=== PATIENT | male | born 1945 | race Caucasian/White ===

== ENCOUNTER 2016-03-30 07:13 | Emergency (ER) | payer OTHER, MEDICARE ==
[~2016-03-30] VITALS: Ht 167.6 cm; Wt 81.6 kg
[~2016-03-30 07:13] MED LIST: ASPIRIN325 MG PO; ATENOLOL50 MG PO; B-COMPLEX1 CAP PO; CEFTIN500 MG PO; CIPROFLOXACIN500 MG PO; KEFLEX500 MG PO; LUCIDEX100 MG PO; MEDROL DOSEPAK4 MG PO; NAPROSYN500 MG PO; OMEPRAZOLE20 MG PO; PRAZOSIN HCL5 MG PO; ROBAXIN500 MG PO; SERTRALINE25 MG PO; SIMVASTATIN20 MG PO; THERAGRAN1 TAB PO; TRAZODONE100 MG PO; ULTRAM50 MG PO; VENLAFAXINE150 MG PO; VICODIN 5/500 505 MG PO; Vicodin 5/500 505 MG PO; ZITHROMAX500 MG PO; [UNRECOGNIZED DRUG - OTHER] PO; [UNRECOGNIZED DRUG - OTHER] PO
[2016-03-30 07:18] VITALS: BP 132/83
[2016-03-30] MEDS ORDERED: SUBOXONE 2 MG-1 EACH SL (07:19)
[2016-03-30] MEDS ORDERED: ZITHROMAX250 MG PO (08:35)
== END 2016-03-30 08:40 | disposition home or self-care (01) ==
LOC: ED 07:13
DX: J40 Bronchitis, not specified as acute or chronic (principal); Z79.899 Other long term (current) drug therapy

== ENCOUNTER 2016-08-09 15:11 | Emergency (ER) | payer OTHER, MEDICARE ==
[~2016-08-09] VITALS: Wt 74.8 kg
[~2016-08-09 15:11] MED LIST changes: +SUBOXONE 2 MG-1 EACH SL; +ZITHROMAX250 MG PO
[2016-08-09] MEDS ORDERED: ACETAMINOPHEN/B1 TA1 PO (15:22)
[2016-08-09 15:31] LABS: BASO # 0.1 10*3/uL (0.0-0.1); BASO % 0.7 % (0.0-1.0); EOS # 0.3 10*3/uL (0.0-0.4); EOS % 3.7 % (1.0-4.0); HEMOGLOBIN 10.7 g/dl (14.0-18.0); LYMPH # 1.4 10*3/uL (1.3-4.4); LYMPH % 19.1 % (27.0-41.0); MEAN CELL VOLUME 86.3 fl (80.0-94.0); MEAN CORPUSCULAR HGB 28.8 pg (27.0-31.0); MEAN CORPUSCULAR HGB CONC 33.4 g/dl (33.0-37.0); MEAN PLATELET VOLUME 9.1 fl (9.6-12.3); MONO # 0.7 10*3/uL (0.1-1.0); MONO % 9.3 % (3.0-9.0); NEUT # 4.7 10*3/uL (2.3-7.9); NEUT % 67.1 % (47.0-73.0); PLATELET COUNT AUTOMATED 178 10*3/uL (130-400); RED BLOOD COUNT 3.71 10*6/uL (4.50-5.90); RED CELL DISTRI WIDTH 13.6 % (0-14.5); WHITE BLOOD COUNT 7.1 10*3/uL (4.8-10.8)
[2016-08-09 15:46] LABS: ALBUMIN 3.6 gm/dl (3.1-4.5); ALKALINE PHOSPHATASE 87 U/L (45-117); BILIRUBIN, TOTAL 0.2 mg/dl (0.2-1.0); BUN 9 mg/dl (7-24); CARBON DIOXIDE 28 mmol/L (21-32); CHLORIDE 102 mmol/L (98-107); EST GLOM FILT AFRICAN AMERICAN > 60 ml/min; GLUCOSE 105 mg/dL (65-99); MAGNESIUM 2.1 mg/dL (1.5-2.1); POTASSIUM 3.7 mmol/L (3.5-5.1); SGOT/AST 16 IU/L (3-35); SGPT/ALT 17 U/L (12-78); SODIUM 139 mmol/L (136-145); TOTAL PROTEIN 6.6 gm/dL (6.4-8.2)
[2016-08-09 15:50] LABS: PROTHROMBIN TIME 10.4 SECONDS (9.0-12.4)
[2016-08-09 16:18] VITALS: BP 147/93
== END 2016-08-09 16:42 | disposition home or self-care (01) ==
LOC: ED 15:11
PROVIDERS: Emergency Medicine
DX: R07.9 Chest pain, unspecified (principal); Z90.49 Acquired absence of other specified parts of digestive tract; I25.2 Old myocardial infarction; Z95.1 Presence of aortocoronary bypass graft

== ENCOUNTER 2016-08-30 19:48 | Inpatient (IN) | payer OTHER ==
[~2016-08-30] VITALS: Ht 167.6 cm; Wt 74.0 kg
--- NOTE | ~2016-08-30 | ST ---
[place], [place] EXERCISE STRESS TEST REPORT NAME: ARMANDO IZAGUIRRE [facility] #: [id number] UNIT #: [id number] ROOM: 506 DOCTOR: KYLE LAL MD BIRTHDATE: [birth year] DOS: 08/31/2016 INDICATIONS: Precordial chest pain. PROCEDURE: The patient was given a rapid infusion of regadenoson 0.4 mg intravenously followed by a saline flush. He did note shortness of breath, but denied any chest pain. The resting heart rate of 48 belén to 78. The resting blood pressure of 162/78 fell to 148/80 after the infusion, he was given radionuclide intravenously. He had no diagnostic electrocardiographic changes. He did have frequent premature ventricular contractions before, during and after the infusion. All symptoms resolved spontaneously. IMPRESSION: 1. Well tolerated infusion of regadenoson. 2. Radionuclide administered. Please see the separate imaging report for further details of the patient's stress test results. KYLE LAL MD CM:STRESS:EXERCISE STRESS TEST REPORT [id number] KYLE LAL MD
--- NOTE | ~2016-08-30 | PR ---
[place], [place] PROGRESS NOTE NAME: ARMANDO IZAGUIRRE UNIT #: [id number] ROOM: 506 DOCTOR: KYLE LAL MD BIRTHDATE: [birth year] DOS: SUBJECTIVE: The patient was seen at his bedside today 09/01/2016 for followup of his atherosclerotic heart disease and chest pain. I reviewed the stress test which was done yesterday. The study does show an inferior wall myocardial infarction with rhoda-infarction ischemia. In addition, he does have anterior and lateral ischemia. The study is compatible with multivessel coronary artery disease. His ejection fraction is preserved. The patient does have a high risk for future cardiac events and I think that he should undergo catheterization and potential revascularization. I have discussed these issues with him. He would prefer to have any further invasive work done through the [facility] and I will defer to his wishes. manager creative services have been requested to arrange for transfer. I have also discussed this with the house staff. OBJECTIVE: VITAL SIGNS: On exam today, his pulse is 50 and regular, blood pressure is 126/58. He is afebrile. NECK: Supple. He has no jugular distention. CHEST: Clear. HEART: Has regular rhythm and an S4 gallop. ABDOMEN: Benign. EXTREMITIES: Showed no edema. IMPRESSION: 1. Atypical precordial chest pain, acute myocardial infarction ruled out. 2. History of coronary artery disease and previous myocardial infarction, status post bypass surgery in 1995 at the [facility] in [place]. A 3-vessel procedure was done. Records are not currently available. 3. Abnormal stress test demonstrating an old inferior wall myocardial infarction with rhoda-infarction ischemia along with considerable anterolateral ischemia. This study is compatible with multivessel coronary artery disease and a high risk for future cardiac events. PLAN: As noted, the patient is being treated medically for now, but should be transferred to a tertiary care center for catheterization and probable revascularization. This is being arranged. We thank the hospitalist group for asking our advice regarding his care. [place], [place] PROGRESS NOTE NAME: ARMANDO IZAGUIRRE UNIT #: [id number] ROOM: 506 DOCTOR: KYLE LAL MD BIRTHDATE: [birth year] KYLE LAL MD CM:PNTRANS [id number] KYLE LAL MD 09/01/16 2235 interface
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
[~2016-08-30 19:48] MED LIST changes: +ACETAMINOPHEN/B1 TA1 PO
[2016-08-30 19:52] VITALS: BP 122/105
[2016-08-30 20:25] VITALS: BP 139/57
[2016-08-30 20:29] LABS: BASO # 0.1 10*3/uL (0.0-0.1); BASO % 0.7 % (0.0-1.0); EOS # 0.2 10*3/uL (0.0-0.4); EOS % 3.5 % (1.0-4.0); HEMATOCRIT 33.3 % (42.0-52.0); HEMOGLOBIN 11.2 g/dl (14.0-18.0); LYMPH # 1.9 10*3/uL (1.3-4.4); LYMPH % 26.7 % (27.0-41.0); MEAN CORPUSCULAR HGB 28.9 pg (27.0-31.0); MEAN CORPUSCULAR HGB CONC 33.6 g/dl (33.0-37.0); MEAN PLATELET VOLUME 11.1 fl (9.6-12.3); MONO # 0.5 10*3/uL (0.1-1.0); MONO % 7.6 % (3.0-9.0); NEUT # 4.3 10*3/uL (2.3-7.9); NEUT % 61.4 % (47.0-73.0); PLATELET COUNT AUTOMATED 175 10*3/uL (130-400); RED BLOOD COUNT 3.87 10*6/uL (4.50-5.90); RED CELL DISTRI WIDTH 13.9 % (0-14.5); WHITE BLOOD COUNT 6.9 10*3/uL (4.8-10.8)
[2016-08-30 20:37] LABS: PROTHROMBIN TIME 10.7 SECONDS (9.0-12.4)
[2016-08-30 21:09] VITALS: BP 113/54
[2016-08-30 21:13] LABS: ALBUMIN 3.5 gm/dl (3.1-4.5); ALKALINE PHOSPHATASE 102 U/L (45-117); BILIRUBIN, TOTAL 0.2 mg/dl (0.2-1.0); BUN 17 mg/dl (7-24); CARBON DIOXIDE 31 mmol/L (21-32); CHLORIDE 101 mmol/L (98-107); EST GLOM FILT AFRICAN AMERICAN > 60 ml/min; GLUCOSE 109 mg/dL (65-99); POTASSIUM 3.1 mmol/L (3.5-5.1); SGOT/AST 18 IU/L (3-35); SGPT/ALT 22 U/L (12-78); SODIUM 139 mmol/L (136-145); TOTAL PROTEIN 6.7 gm/dL (6.4-8.2); TROPONIN I 0.038 ng/ml (<0.045)
[2016-08-30 21:30] VITALS: BP 119/56
[2016-08-30 22:05] VITALS: BP 133/23; BP 133/63
[2016-08-30] MEDS ORDERED: ATORVASTATIN CA40 M1 PO (22:19)
[2016-08-31] VITALS: BP 129/63
[2016-08-31 01:07] LABS: CKMB 1.2 ng/ml (0.5-3.6); TROPONIN I 0.037 ng/ml (<0.045)
[2016-08-31 06:26] LABS: BASO % 0.8 % (0.0-1.0); EOS # 0.2 10*3/uL (0.0-0.4); EOS % 4.5 % (1.0-4.0); HEMATOCRIT 35.2 % (42.0-52.0); HEMOGLOBIN 11.6 g/dl (14.0-18.0); LYMPH # 1.6 10*3/uL (1.3-4.4); LYMPH % 32.9 % (27.0-41.0); MEAN CELL VOLUME 87.1 fl (80.0-94.0); MEAN CORPUSCULAR HGB 28.7 pg (27.0-31.0); MONO # 0.6 10*3/uL (0.1-1.0); MONO % 11.4 % (3.0-9.0); NEUT # 2.5 10*3/uL (2.3-7.9); NEUT % 50.2 % (47.0-73.0); PLATELET COUNT AUTOMATED 193 10*3/uL (130-400); RED BLOOD COUNT 4.04 10*6/uL (4.50-5.90); RED CELL DISTRI WIDTH 13.5 % (0-14.5); WHITE BLOOD COUNT 4.9 10*3/uL (4.8-10.8)
[2016-08-31 06:34] LABS: TROPONIN I 0.04 ng/ml (<0.045)
[2016-08-31 06:42] LABS: PROTHROMBIN TIME 10.4 SECONDS (9.0-12.4)
[2016-08-31 06:43] LABS: BUN 15 mg/dl (7-24); CARBON DIOXIDE 32 mmol/L (21-32); CHLORIDE 102 mmol/L (98-107); GLUCOSE 101 mg/dL (65-99); HDL CHOLESTEROL 55 mg/dl (40-60); POTASSIUM 3.8 mmol/L (3.5-5.1); SODIUM 139 mmol/L (136-145)
[2016-08-31 06:56] LABS: CHOLESTEROL 117 mg/dL (<200); EST GLOM FILT AFRICAN AMERICAN > 60 ml/min; FREE T4 0.87 ng/dl (0.76-1.46); LDL CHOLESTEROL 45 mg/dL (9-159); TRIGLYCERIDES 87 mg/dl (<150); VLDL CHOLESTEROL 17 mg/dL (6-40)
[2016-08-31 08:00] VITALS: BP 151/68
[2016-08-31 08:48] LABS: FOLIC ACID 22.51 ng/mL (>5.38)
[2016-08-31 14:47] LABS: CKMB 1.1 ng/ml (0.5-3.6); TROPONIN I 0.027 ng/ml (<0.045)
[2016-08-31 16:00] VITALS: BP 155/71
[2016-08-31 20:00] VITALS: BP 149/55
[2016-09-01] VITALS: BP 124/75
[2016-09-01 07:49] LABS: BUN 9 mg/dl (7-24); CARBON DIOXIDE 30 mmol/L (21-32); CHLORIDE 102 mmol/L (98-107); EST GLOM FILT AFRICAN AMERICAN > 60 ml/min; GLUCOSE 108 mg/dL (65-99); POTASSIUM 3.6 mmol/L (3.5-5.1); SODIUM 138 mmol/L (136-145)
[2016-09-01 08:00] VITALS: BP 126/58
[2016-09-01 08:08] LABS: BASO # 0.1 10*3/uL (0.0-0.1); EOS # 0.2 10*3/uL (0.0-0.4); EOS % 4.2 % (1.0-4.0); HEMATOCRIT 36.9 % (42.0-52.0); HEMOGLOBIN 12.2 g/dl (14.0-18.0); LYMPH # 1.5 10*3/uL (1.3-4.4); LYMPH % 29.3 % (27.0-41.0); MEAN CORPUSCULAR HGB 28.1 pg (27.0-31.0); MEAN CORPUSCULAR HGB CONC 33.1 g/dl (33.0-37.0); MEAN PLATELET VOLUME 9.8 fl (9.6-12.3); MONO # 0.5 10*3/uL (0.1-1.0); MONO % 9.5 % (3.0-9.0); NEUT # 2.8 10*3/uL (2.3-7.9); NEUT % 55.8 % (47.0-73.0); PLATELET COUNT AUTOMATED 201 10*3/uL (130-400); RED BLOOD COUNT 4.34 10*6/uL (4.50-5.90); RED CELL DISTRI WIDTH 13.3 % (0-14.5); WHITE BLOOD COUNT 5.1 10*3/uL (4.8-10.8)
[2016-09-01 12:00] VITALS: BP 160/46; BP 160/66
[2016-09-01 16:00] VITALS: BP 145/61
[2016-09-01 20:00] VITALS: BP 161/71
[2016-09-01 21:15] VITALS: BP 161/71
[2016-09-02] VITALS: BP 113/61
[2016-09-02 08:00] VITALS: BP 139/78
[2016-09-02 12:00] VITALS: BP 136/76
[2016-09-02 16:00] VITALS: BP 106/44
[2016-09-02 20:00] VITALS: BP 139/72
[2016-09-03] VITALS: BP 120/55
[2016-09-03 06:13] LABS: BASO % 0.4 % (0.0-1.0); EOS # 0.1 10*3/uL (0.0-0.4); EOS % 1.2 % (1.0-4.0); HEMATOCRIT 33.3 % (42.0-52.0); HEMOGLOBIN 11.2 g/dl (14.0-18.0); LYMPH # 0.9 10*3/uL (1.3-4.4); LYMPH % 12.9 % (27.0-41.0); MEAN CELL VOLUME 85.6 fl (80.0-94.0); MEAN CORPUSCULAR HGB 28.8 pg (27.0-31.0); MEAN CORPUSCULAR HGB CONC 33.6 g/dl (33.0-37.0); MEAN PLATELET VOLUME 10.3 fl (9.6-12.3); MONO # 0.6 10*3/uL (0.1-1.0); MONO % 8.7 % (3.0-9.0); NEUT # 5.3 10*3/uL (2.3-7.9); NEUT % 76.5 % (47.0-73.0); PLATELET COUNT AUTOMATED 146 10*3/uL (130-400); RED BLOOD COUNT 3.89 10*6/uL (4.50-5.90); RED CELL DISTRI WIDTH 13.4 % (0-14.5); WHITE BLOOD COUNT 6.9 10*3/uL (4.8-10.8)
[2016-09-03 06:49] LABS: EST GLOM FILT AFRICAN AMERICAN > 60 ml/min
[2016-09-03 08:00] VITALS: BP 128/43
[2016-09-03] MEDS ORDERED: CLOPIDOGREL75 MG PO (11:37)
[2016-09-03] MEDS ORDERED: ASPIRIN ADULT L81 M2 PO (11:37)
[2016-09-03] MEDS ORDERED: METOPROLOL SUCC25 M2 PO (11:37)
[2016-09-03 12:00] VITALS: BP 132/52
[2016-09-03 16:00] VITALS: BP 143/74
[2016-09-03 20:00] VITALS: BP 144/70
[2016-09-04] VITALS: BP 112/48
== END 2016-09-04 07:45 | disposition short-term general hospital (02) | DRG 303 ==
LOC: ED 19:48 → EDHOLD 21:24 → 5E 21:24
PROVIDERS: Emergency Medicine; Internal Medicine; Student in an Organized Health Care Education/Training Program
PROC: 4A02XM4 Measurement of Cardiac Total Activity, External Approach (ICD-10-PCS; principal; 2016-08-31)
PROC: 3E033HZ Introduction of Radioactive Substance into Peripheral Vein, Percutaneous Approach (ICD-10-PCS; principal; 2016-08-31)
DX: I25.110 Atherosclerotic heart disease of native coronary artery with unstable angina pectoris (principal); E78.5 Hyperlipidemia, unspecified; E87.6 Hypokalemia; K21.9 Gastro-esophageal reflux disease without esophagitis; D64.9 Anemia, unspecified; G43.909 Migraine, unspecified, not intractable, without status migrainosus; G89.4 Chronic pain syndrome; Z90.49 Acquired absence of other specified parts of digestive tract; I25.2 Old myocardial infarction; Z95.1 Presence of aortocoronary bypass graft; Z87.891 Personal history of nicotine dependence; Z82.49 Family history of ischemic heart disease and other diseases of the circulatory system; Z80.9 Family history of malignant neoplasm, unspecified; Z79.1 Long term (current) use of non-steroidal anti-inflammatories (NSAID); Z79.899 Other long term (current) drug therapy

== ENCOUNTER 2019-05-09 14:23 | Inpatient (IN) | payer OTHER ==
[~2019-05-09] VITALS: Ht 167.6 cm; Wt 73.1 kg
[~2019-05-09 14:23] MED LIST changes: +ASPIRIN ADULT L81 M2 PO; +ATORVASTATIN CA40 M1 PO; +CLOPIDOGREL75 MG PO; +FUROSEMIDE20 M1 PO; +METOPROLOL SUCC25 M2 PO; +MINIPRESS1 M1 PO; +ZESTRIL10 MG PO
[2019-05-09 14:32] VITALS: BP 169/66
[2019-05-09 15:05] LABS: BASO % 0.4 % (0.0-1.0); EOS # 0.1 10*3/uL (0.0-0.4); EOS % 1.2 % (1.0-4.0); HEMATOCRIT 36.8 % (42.0-52.0); HEMOGLOBIN 11.8 g/dl (14.0-18.0); LYMPH # 0.9 10*3/uL (1.3-4.4); LYMPH % 17.4 % (27.0-41.0); MEAN CELL VOLUME 92.2 fl (80.0-94.0); MEAN CORPUSCULAR HGB 29.6 pg (27.0-31.0); MEAN CORPUSCULAR HGB CONC 32.1 g/dl (33.0-37.0); MONO # 0.6 10*3/uL (0.1-1.0); MONO % 12.3 % (3.0-9.0); NEUT # 3.5 10*3/uL (2.3-7.9); NEUT % 68.5 % (47.0-73.0); PLATELET COUNT AUTOMATED 150 10*3/uL (130-400); RED BLOOD COUNT 3.99 10*6/uL (4.50-5.90); WHITE BLOOD COUNT 5.1 10*3/uL (4.8-10.8)
[2019-05-09 15:26] LABS: ALBUMIN 3.7 gm/dl (3.1-4.5); ALKALINE PHOSPHATASE 103 U/L (45-117); BUN 23 mg/dl (7-24); CHLORIDE 100 mmol/L (98-107); CREATININE 0.85 mg/dL (0.70-1.30); POTASSIUM 3.4 mmol/L (3.5-5.1); SGOT/AST 33 IU/L (3-35); SGPT/ALT 28 U/L (12-78); SODIUM 135 mmol/L (136-145)
[2019-05-09 15:30] LABS: ETHYL ALCOHOL < 3.0 mg/dl (<3)
[2019-05-09 17:55] VITALS: BP 160/92; BP 161/95
[2019-05-09] MEDS ORDERED: ZOLOFT100 MG PO (19:24)
[2019-05-09 20:00] VITALS: BP 157/83
[2019-05-10] VITALS: BP 153/76
[2019-05-10 06:21] LABS: BASO % 0.7 % (0.0-1.0); EOS # 0.1 10*3/uL (0.0-0.4); EOS % 1.9 % (1.0-4.0); HEMATOCRIT 38.3 % (42.0-52.0); HEMOGLOBIN 12.3 g/dl (14.0-18.0); LYMPH # 1.1 10*3/uL (1.3-4.4); LYMPH % 25.9 % (27.0-41.0); MEAN CELL VOLUME 91.4 fl (80.0-94.0); MEAN CORPUSCULAR HGB 29.4 pg (27.0-31.0); MEAN CORPUSCULAR HGB CONC 32.1 g/dl (33.0-37.0); MEAN PLATELET VOLUME 9.3 fl (9.6-12.3); MONO # 0.6 10*3/uL (0.1-1.0); MONO % 13.3 % (3.0-9.0); NEUT # 2.4 10*3/uL (2.3-7.9); PLATELET COUNT AUTOMATED 144 10*3/uL (130-400); RED BLOOD COUNT 4.19 10*6/uL (4.50-5.90); RED CELL DISTRI WIDTH 14.2 % (0-14.5); WHITE BLOOD COUNT 4.1 10*3/uL (4.8-10.8)
[2019-05-10 06:43] LABS: ALBUMIN 3.6 gm/dl (3.1-4.5); ALKALINE PHOSPHATASE 90 U/L (45-117); BUN 14 mg/dl (7-24); CHLORIDE 102 mmol/L (98-107); CHOLESTEROL 182 mg/dL (<200); FREE T4 0.93 ng/dl (0.76-1.46); HDL CHOLESTEROL 93 mg/dl (40-60); LDL CHOLESTEROL 74 mg/dL (9-159); PHOSPHOROUS 3.3 mg/dL (2.5-4.9); POTASSIUM 3.1 mmol/L (3.5-5.1); SGOT/AST 24 IU/L (3-35); SGPT/ALT 25 U/L (12-78); SODIUM 139 mmol/L (136-145); TOTAL PROTEIN 6.9 gm/dL (6.4-8.2); TRIGLYCERIDES 76 mg/dl (<150); VLDL CHOLESTEROL 15 mg/dL (6-40)
[2019-05-10 06:44] LABS: ACT PARTIAL THROMBO TIME 26.1 SECONDS (20.0-32.1); INTERNATIONAL NORM RATIO 0.9 (2.0-3.5)
[2019-05-10 07:04] LABS: VITAMIN D, 25-HYDROXY 44.5 ng/mL (30-100)
[2019-05-10 08:00] VITALS: BP 167/87
[2019-05-10 08:30] VITALS: BP 132/78
== END 2019-05-10 11:47 | disposition home or self-care (01) | DRG 897 ==
LOC: ED 14:23 → EDHOLD 16:06 → 5E 16:51
PROVIDERS: Emergency Medicine; Internal Medicine; ADMIT Family Medicine
DX: F10.239 Alcohol dependence with withdrawal, unspecified (principal); E87.1 Hypo-osmolality and hyponatremia; E87.6 Hypokalemia; D64.9 Anemia, unspecified; F32.9 Major depressive disorder, single episode, unspecified; R73.9 Hyperglycemia, unspecified; I25.10 Atherosclerotic heart disease of native coronary artery without angina pectoris; E78.5 Hyperlipidemia, unspecified; K21.9 Gastro-esophageal reflux disease without esophagitis; G43.909 Migraine, unspecified, not intractable, without status migrainosus; Y90.9 Presence of alcohol in blood, level not specified; Z79.899 Other long term (current) drug therapy; I25.2 Old myocardial infarction; Z95.1 Presence of aortocoronary bypass graft; Z82.49 Family history of ischemic heart disease and other diseases of the circulatory system; Z87.891 Personal history of nicotine dependence; Z80.0 Family history of malignant neoplasm of digestive organs; Z68.25 Body mass index [BMI] 25.0-25.9, adult

== ENCOUNTER → 2019-08-07 | Outpatient (CLI) | payer OTHER ==
[~2019-08-07] MED LIST changes: +ZOLOFT100 MG PO
== END | disposition home or self-care (01) ==
LOC: CARD 09:58
DX: I08.8 Other rheumatic multiple valve diseases (principal); I27.20 Pulmonary hypertension, unspecified

== ENCOUNTER 2019-09-29 13:45 | Inpatient (IN) | payer OTHER ==
[~2019-09-29] VITALS: Ht 167.6 cm; Wt 68.2 kg
[2019-09-29 13:51] VITALS: BP 154/101
[2019-09-29 14:18] LABS: BASO # 0.1 10*3/uL (0.0-0.1); BASO % 0.8 % (0.0-1.0); EOS # 0.1 10*3/uL (0.0-0.4); EOS % 1.3 % (1.0-4.0); HEMATOCRIT 38.5 % (42.0-52.0); LYMPH # 1.1 10*3/uL (1.3-4.4); LYMPH % 18.6 % (27.0-41.0); MEAN CELL VOLUME 86.9 fl (80.0-94.0); MEAN CORPUSCULAR HGB 28.9 pg (27.0-31.0); MEAN CORPUSCULAR HGB CONC 33.2 g/dl (33.0-37.0); MEAN PLATELET VOLUME 8.5 fl (9.6-12.3); MONO # 0.5 10*3/uL (0.1-1.0); MONO % 7.7 % (3.0-9.0); NEUT # 4.3 10*3/uL (2.3-7.9); NEUT % 71.4 % (47.0-73.0); PLATELET COUNT AUTOMATED 235 10*3/uL (130-400); RED BLOOD COUNT 4.43 10*6/uL (4.50-5.90); RED CELL DISTRI WIDTH 14.1 % (0-14.5)
[2019-09-29 14:32] LABS: ALBUMIN 3.9 gm/dl (3.1-4.5); ALKALINE PHOSPHATASE 109 U/L (45-117); BUN 19 mg/dl (7-24); CHLORIDE 107 mmol/L (98-107); CREATININE 0.88 mg/dL (0.70-1.30); LIPASE 102 U/L (73-393); POTASSIUM 3.6 mmol/L (3.5-5.1); SGOT/AST 19 IU/L (3-35); SGPT/ALT 22 U/L (12-78); SODIUM 141 mmol/L (136-145); TOTAL PROTEIN 7.6 gm/dL (6.4-8.2)
[2019-09-29 14:33] LABS: ACETAMINOPHEN (TYLENOL) < 5.0 ug/ml (10-30)
[2019-09-29 14:53] LABS: URINE AMPHETAMINES < 1000 (1000ng/ml); URINE BARBITURATES < 200 (200ng/ml); URINE BENZODIAZEPINES < 200 (200ng/ml); URINE CANNABINOIDS (THC) < 50 (50ng/ml); URINE COCAINE < 300 (300ng/ml); URINE METHADONE < 300 (300ng/ml); URINE OPIATES < 300 (300ng/ml)
[2019-09-29 14:55] LABS: BILIRUBIN NEGATIVE (NEGATIVE); BLOOD TRACE-INTACT (NEGATIVE); CLARITY CLEAR (CLEAR); COLOR YELLOW (YELLOW); GLUCOSE NEGATIVE (NEGATIVE); KETONE NEGATIVE (NEGATIVE); LEUKO ESTERASE NEGATIVE (NEGATIVE); NITRITE NEGATIVE (NEGATIVE); SPECIFIC GRAVITY 1.025 (1.005-1.030); UROBILINOGEN < 0.2 E.U./dl (0.2-1.0)
[2019-09-29 14:57] LABS: URINE PHENCYCLIDINE < 25 (25ng/ml)
--- NOTE | 2019-09-29 14:59 | NUR ---
PROVIDED CRACKERS AND GINGERALE PER HIS REQUEST.
[2019-09-29 15:30] VITALS: BP 130/80
--- NOTE | 2019-09-29 15:31 | NUR ---
[place] STAFF IN TO SEE PATIENT. PATIENT MEETS [facility]. [facility] STAFF WILL ALSO PROVIDE PATIENT WITH AA/NA MEETINGS IN HIS LOCAL AREA. ZACH WEBB B.A. CHEFS
--- NOTE | 2019-09-29 15:48 | NUR ---
PROVIDED MEAL TRAY AT THIS TIME.
[2019-09-29 16:45] VITALS: BP 136/89
--- NOTE | 2019-09-29 16:45 | NUR ---
A 73, admitted to , under the services of SCOTT Murphy DO with a diagnosis of OPIATE WITHDRAWAL, ALCOHOL ABUSE. Chief complaint is SUICIDAL IDEATION. Patient arrived via bed from ER. Monitor applied. Initial assessment completed. Vital signs taken and recorded. SCOTT MURPHY DO notified of admission to the unit. Orders received. See assessment for past medical history, medications and allergies. Patient and/or family oriented to unit. [facility] visitation policy reviewed. Clothing/patient valuable form completed. BUD BALDWIN
[2019-09-29 17:00] VITALS: BP 136/89
--- NOTE | 2019-09-29 19:04 | NUR ---
UNABLE TO UPDATE HOME MEDICATIONS. PT CANNOT VERIFY AND [facility] CLOSE AT 4PM. WILL VERIFY TOMORROW
--- NOTE | 2019-09-29 19:06 | NUR ---
NOTIFIED PERSONNEL RECORDS CLERK OF SUICIDAL IDEATION IN ER. PT IS TO STAY ON FLOOR, NO 1:1 NEEDED. NOT SUICIDAL IDEATIONS AT THIS TIME.
--- NOTE | 2019-09-29 19:21 | NUR ---
24 HR chart check completed.
--- NOTE | 2019-09-29 19:43 | NUR ---
ALISON HOWARD NOTIFIED OF CONSULT, WILL BE IN TO SEE PATIENT IN THE MORNING.
[2019-09-29 20:00] VITALS: BP 155/67
--- NOTE | 2019-09-29 21:21 | NUR ---
Patient displaying withdrawal symptoms, including: irritability, anxiousness, restlessness and agitation. Scheduled/PRN medications provided, SEE EMAR. Will continue to monitor medication effectiveness.
--- NOTE | 2019-09-29 22:00 | NUR ---
Patient resting. Responding to scheduled medications with fewer complaints of pain and anxiety.
[2019-09-30] VITALS: BP 158/81
--- NOTE | 2019-09-30 | NUR ---
SLEEPING. NO ACUTE DISTRESS NOTED. RESPIRATIONS EASY. VSS. CALL LIGHT WITHIN REACH
--- NOTE | 2019-09-30 01:23 | NUR ---
HR ELEVATED 120-140'S. PATIENT DIAPHORETIC WITH TREMORS. IV ATIVAN PROVIDED PER PRN ORDER. WILL MONITOR
--- NOTE | 2019-09-30 01:58 | NUR ---
Patient SLEEPING. Responding to scheduled medications with fewer complaints of pain and anxiety. HR 80-90'S. CALL LIGHT WITHIN REACH
--- NOTE | 2019-09-30 04:00 | NUR ---
Patient resting. Responding to scheduled medications with fewer complaints of pain and anxiety.
--- NOTE | 2019-09-30 05:32 | NUR ---
SLEEPING. MEDICATED WITH ROUTINE LIBRIUM TO ASSIST WITH WITHDRAWALS. WILL MONITOR
--- NOTE | 2019-09-30 06:30 | NUR ---
Patient resting. Responding to scheduled medications with fewer complaints of pain and anxiety.
[2019-09-30 08:00] VITALS: BP 133/71
--- NOTE | 2019-09-30 08:00 | NUR ---
PATIENT AWAKE, ALERT AND ORIENTED SITTING UP IN BED. NO STATED COMPLAINTS AT THIS TIME. DENIES ANY PAIN. RESPIRATIONS ARE EASY AND REGULAR. NO SOB NOTED ON ROOM AIR. BED IN LOWEST LOCKED POSITION AND CALL LIGHT WITHIN REACH. WILL CONTINUE TO MONITOR.
--- NOTE | 2019-09-30 10:16 | NUR ---
met with client to assess for suicide risk and ideation. client was in the er yesterday but i could not assess him as he was intoxicated. client is now sober he reports that he felt suicidal yesterday because he said that he knew that if he didnt get help he would do something, he was admitted to [facility] to detox, he said that he feels better today and he denies having any suicidal thoughts presently. he reports that he feels safe and he does not want to harm himself. this client is not a present risk for self harm, he is not suicidal.
--- NOTE | 2019-09-30 11:13 | NUR ---
PRN ROBAXIN ADMINISTERED AT THIS TIME. WILL MONITOR FOR EFFECTIVE.
--- NOTE | 2019-09-30 11:14 | NUR ---
PRN VISTARIL ADMINISTERED AT THIS TIME. WILL MONITOR FOR EFFECTIVENESS.
--- NOTE | 2019-09-30 11:23 | NUR ---
case management contacted transfer center at [facility] [place] regarding patient's admission to this facility. patient's information given and will be forwarded to a outpatient case manager at [facility], case management will follow
--- NOTE | 2019-09-30 11:52 | NUR ---
PT C/O OF DIARRHEA. PRN IMODIUM ADMINISTERED AT THIS TIME.
[2019-09-30 12:00] VITALS: BP 129/77
--- NOTE | 2019-09-30 12:13 | NUR ---
PT ASLEEP PRN ROBAXIN CONSIDERED EFFECTIVE.
--- NOTE | 2019-09-30 12:14 | NUR ---
PT ASLEEP. PRN VISTARIL CONSIDERED EFFECTIVE,
--- NOTE | 2019-09-30 12:39 | NUR ---
SECURITY CALLED REGARDING PT'S DIET COKES THAT WERE TAKEN.
--- NOTE | 2019-09-30 12:45 | NUR ---
case managment received a call from Souleymane, disease case manager at [facility], Souleymane requested patient's clinicals be faxed, clinials faxed per Zeus request, Souleymane also stated patient has medicare part A as an insurance also, he also [facility] able [facility] with [facility] upon discharge
--- NOTE | 2019-09-30 12:52 | NUR ---
PT STATES RELIEF FROM IMODIUM.
--- NOTE | 2019-09-30 13:06 | NUR ---
[facility] STAFF IN TO SEE PATIENT. PATIENT IS WANTING TO FOLLOW UP WITH AA/NA MEETINGS FOR HIS AFTERCARE PLAN. [place] STAFF WILL PROVIDE PATIENT WITH A LIST IN HIS AREA. ZACH WEBB B.A. CITY ENGINEER
--- NOTE | 2019-09-30 13:06 | NUR ---
PRN TYLENOL ADMINISTERED FOR C/O A HEADACHE. WILL MONITOR FOR EFFECTIVENESS.
--- NOTE | 2019-09-30 14:06 | NUR ---
PT STATES SOME RELIEF FROM PRN TYLENOL. NO OTHER STATED COMPLAINTS. RESPIRATIONS ARE EASY AND REGULAR. ROOM AIR. PT REPOSITIONS SELF AND IS ENCOURAGED TO DO SO. BED IN LOWEST LOCKED POSITION AND CALL LIGHT WITHIN REACH.
[2019-09-30 20:00] VITALS: BP 150/80
--- NOTE | 2019-09-30 20:30 | NUR ---
ASSUMED CARE OF PATIENT. PATIENT IS RESTING IN BED WITH EASY AND REGULAR RESPERS ON ROOM AIR. ASSESSMENT IS COMPLETE WITH NO C/O OR S/S OF DISTRESS NOTED AT THIS TIME. BED IS LOW, LOCKED, AND CALL LIGHT IS WITHIN REACH. WILL CONTINUE TO MONITOR, SEE INTERVENTIONS.
--- NOTE | 2019-09-30 21:46 | NUR ---
PRN TYLENOL AND VISTARIL GIVEN AT THIS TIME FOR C/O ACHES AND INSOMNIA. CALL LIGHT IS WITHIN REACH, WILL MONITOR EFFECT.
--- NOTE | 2019-09-30 22:46 | NUR ---
PRN TYLENOL AND VISTARIL APPEAR EFFECTIVE. PATIENT IS SLEEPING WITH EASY AND REGULAR RESPERS ON ROOM AIR. CALL LIGHT IS WITHIN REACH, WILL CONTINUE TO MONITOR.
[2019-10-01] VITALS: BP 157/79
--- NOTE | 2019-10-01 04:00 | NUR ---
PATIENT SLEEPING WITH EASY AND REGULAR RESPERS ON ROOM AIR. CALL LIGHT IS WITHIN REACH, WILL CONTINUE TO MONITOR.
--- NOTE | 2019-10-01 06:32 | NUR ---
PRN ROBAXIN GIVEN FOR C/O BADY ACHES. CALL LIGHT IS WITHIN REACH, WILL CONTINUE TO MONITOR.
--- NOTE | 2019-10-01 12:05 | NUR ---
[place] STAFF IN TO SEE PATIENT. [place] STAFF PROVIDED PATIENT WITH REFERRAL OPTIONS AND A LIST AA/NA MEETINGS IN HIS LOCAL AREA. ZACH WEBB B.A. COMMERCIAL TITLE EXAMINER
--- NOTE | 2019-10-01 13:16 | NUR ---
ATIVAN 1 MG GIVEN FOR INCREASED ANXIETY.
[2019-10-01 20:00] VITALS: BP 151/71
--- NOTE | 2019-10-01 21:30 | NUR ---
PATIENT CALLED IN STATING PATIENT IS REQUESTING SLEEPING MEDICATION, SOMETHING FOR A HEADACHE, AND LEGS ACHING.
--- NOTE | 2019-10-01 21:47 | NUR ---
PRN MOTRIN, TYLENOL, AND ATIVAN GIVEN AT THIS TIME FOR C/O HEADACHES/LEG ACHES AND ANXIETY. PATIENT ALSO C/O GI UPSET. CALL LIGHT IS WITHIN REACH. WILL MONITOR EFFECT.
--- NOTE | 2019-10-01 21:54 | NUR ---
PRN ZOFRAN GIVEN FOR C/O GI UPSET/NAUSEA. CALL LIGHT IS WITHIN REACH, WILL MONITOR EFFECT.
--- NOTE | 2019-10-01 22:47 | NUR ---
PRN MOTRIN, TYLENOL, AND ATIVAN EFFECTIVE, PATIENT SLEEPING. CALL LIGHT IS WITHIN REACH.
--- NOTE | 2019-10-01 22:54 | NUR ---
PRN ZOFRAN EFFECTIVE, PATIENT SLEEPING. CALL LIGHT IS WITHIN REACH.
[2019-10-02] VITALS: BP 119/69
--- NOTE | 2019-10-02 04:21 | NUR ---
CHART CHECK COMPLETE.
--- NOTE | 2019-10-02 04:52 | NUR ---
PATIENT AWAKENS EASILY FOR ADMINISTRATION OF AM MEDICATIONS. PRN MOTRIN AND ROBAXIN GIVEN WELL FOR C/O BODY ACHES AND HEADACHE. CALL LIGHT IS WITHIN REACH, WILL MONITOR EFFECT.
[2019-10-02 05:39] LABS: BUN 15 mg/dl (7-24); CREATININE 0.77 mg/dL (0.70-1.30)
--- NOTE | 2019-10-02 05:52 | NUR ---
PRN MOTRIN AND ROBAXIN EFFECTIVE PER PATIENT. CALL LIGHT IS WITHIN REACH.
--- NOTE | 2019-10-02 09:27 | NUR ---
called in and updated on care.
--- NOTE | 2019-10-02 11:04 | NUR ---
Notified pt Karyna of order for discharge today. Notified that pt has his last does of librium at 2 pm. States he will be here about 230 or 3 pm.
--- NOTE | 2019-10-02 13:34 | NUR ---
Spoke with Dr. Villaseñor. Notified that I received a call from pt . She states she does not feel pt is ready to go home today. States he is weak and stumbling around room when he gets up. Feels unsteady and unsafe to go home. Dr. Villaseñor states that is Dr. Houser's team but she will notify them. Pt and feel more comfortable if pt can come home tomorrow instead.
--- NOTE | 2019-10-02 14:00 | NUR ---
Notified pt that pt was ordered a consult for PT and OT. Notified they will evaluate pt and make recommendations.
--- NOTE | 2019-10-02 14:04 | NUR ---
Medicated with motrin and robaxin per prn order for complaints of muscles aches and pains. States legs are aching.
--- NOTE | 2019-10-02 15:00 | NUR ---
States that meds given earlier effective.
--- NOTE | 2019-10-02 17:56 | NUR ---
Medicated with tylenol per prn order for complaints of leg pain.
[2019-10-02 20:00] VITALS: BP 112/69; BP 164/82
--- NOTE | 2019-10-02 20:00 | NUR ---
ASSUMED CARE OF PATIENT. PATIENT IS RESTING IN BED WITH EASY AND REGULAR RESPERS ON ROOM AIR. ASSESSMENT IS COMPLETE WITH NO C/O OR S/S OF DISTRESS NOTED AT THIS TIME. BED IS LOW, AND CALL LIGHT IS WITHIN REACH. WILL CONTINUE TO MONITOR, SEE INTERVENTIONS.
[2019-10-03] VITALS: BP 156/59
[2019-10-03 06:05] LABS: BASO % 0.6 % (0.0-1.0); EOS # 0.1 10*3/uL (0.0-0.4); HEMATOCRIT 35.4 % (42.0-52.0); LYMPH # 1.2 10*3/uL (1.3-4.4); LYMPH % 24.8 % (27.0-41.0); MEAN CELL VOLUME 87.4 fl (80.0-94.0); MEAN CORPUSCULAR HGB 28.6 pg (27.0-31.0); MEAN CORPUSCULAR HGB CONC 32.8 g/dl (33.0-37.0); MEAN PLATELET VOLUME 9.4 fl (9.6-12.3); MONO # 0.6 10*3/uL (0.1-1.0); NEUT # 2.7 10*3/uL (2.3-7.9); NEUT % 58.4 % (47.0-73.0); PLATELET COUNT AUTOMATED 193 10*3/uL (130-400); RED BLOOD COUNT 4.05 10*6/uL (4.50-5.90); RED CELL DISTRI WIDTH 13.5 % (0-14.5); WHITE BLOOD COUNT 4.7 10*3/uL (4.8-10.8)
[2019-10-03 06:10] LABS: BUN 13 mg/dl (7-24); CHLORIDE 105 mmol/L (98-107); CREATININE 0.85 mg/dL (0.70-1.30); POTASSIUM 3.2 mmol/L (3.5-5.1); SODIUM 138 mmol/L (136-145)
[2019-10-03 08:00] VITALS: BP 148/69
--- NOTE | 2019-10-03 09:32 | NUR ---
Occupational Therapy evaluation completed on FOUR with full evaluation to follow. Recommend occupational therapy per plan of care and Home with HH SN, OT, and PT upon discharge. Thank you for this referral. Lisa Shah OTR/L
--- NOTE | 2019-10-03 09:34 | NUR ---
PHYSICAL THERAPY Physical Therapy evaluation completed on 4E with full evaluation to follow. Low complexity PT evaluation per chart review and evaluation, [id number]. Recommend physical therapy per plan of care and Home Health upon discharge. Thank you for this referral. Jeimy Omer,PT,DPT
--- NOTE | 2019-10-03 11:09 | NUR ---
Notified Dr. Tse of recommendations per notes from OT and PT consults for home care. Asked if he wanted these for dc today. States he will speak with Dr. Houser.
[2019-10-03 12:00] VITALS: BP 118/51
--- NOTE | 2019-10-03 12:23 | NUR ---
Discharge instructions reviewed with patient. Patient receptive and verbalizes understanding. Follow-up care arranged. Written instructions given to patient. SANTINO SONG
--- NOTE | 2019-10-03 12:40 | NUR ---
Spoke with pt . States she has some errands to run in [employer] and then she will sheepskin pickler pt out front.
--- NOTE | 2019-10-03 14:15 | NUR ---
PT DC VIA WHEELCHAIR TO MEET OUT FRONT.
== END 2019-10-03 14:15 | disposition home or self-care (01) | DRG 897 ==
LOC: ED 13:45 → EDHOLD 15:30 → 4E 15:30
PROVIDERS: Internal Medicine; Nurse Practitioner Family; ADMIT Student in an Organized Health Care Education/Training Program
DX: F10.232 Alcohol dependence with withdrawal with perceptual disturbance (principal); E44.1 Mild protein-calorie malnutrition; R45.851 Suicidal ideations; F32.9 Major depressive disorder, single episode, unspecified; Y90.8 Blood alcohol level of 240 mg/100 ml or more; R73.9 Hyperglycemia, unspecified; F41.9 Anxiety disorder, unspecified; K21.9 Gastro-esophageal reflux disease without esophagitis; E78.5 Hyperlipidemia, unspecified; I25.10 Atherosclerotic heart disease of native coronary artery without angina pectoris; F11.23 Opioid dependence with withdrawal; G43.909 Migraine, unspecified, not intractable, without status migrainosus; Z95.1 Presence of aortocoronary bypass graft; Z87.891 Personal history of nicotine dependence; I25.2 Old myocardial infarction; Z82.49 Family history of ischemic heart disease and other diseases of the circulatory system; Z80.0 Family history of malignant neoplasm of digestive organs; Z79.899 Other long term (current) drug therapy; Z68.24 Body mass index [BMI] 24.0-24.9, adult; R26.81 Unsteadiness on feet; R26.9 Unspecified abnormalities of gait and mobility; D64.9 Anemia, unspecified

== ENCOUNTER → 2020-05-10 | Outpatient (CLI) | payer OTHER | END | disposition home or self-care (01) | LOC: MRI 09:57 | PROVIDERS: ATTEND Nurse Practitioner Family | DX: S46.812A Strain of other muscles, fascia and tendons at shoulder and upper arm level, left arm, initial encounter (principal); S46.212A Strain of muscle, fascia and tendon of other parts of biceps, left arm, initial encounter; M77.8 Other enthesopathies, not elsewhere classified; M62.512 Muscle wasting and atrophy, not elsewhere classified, left shoulder; S43.002A Unspecified subluxation of left shoulder joint, initial encounter; M75.52 Bursitis of left shoulder; M75.122 Complete rotator cuff tear or rupture of left shoulder, not specified as traumatic; M25.412 Effusion, left shoulder; X58.XXXA Exposure to other specified factors, initial encounter; Y93.89 Activity, other specified; Y92.89 Other specified places as the place of occurrence of the external cause; Y99.8 Other external cause status ==

== ENCOUNTER → 2020-06-23 | Outpatient (CLI) | payer OTHER | END | disposition home or self-care (01) | LOC: CARD 08:28 | PROVIDERS: ATTEND Nurse Practitioner Family | DX: I08.3 Combined rheumatic disorders of mitral, aortic and tricuspid valves (principal) ==

== ENCOUNTER → 2021-01-27 | Outpatient (CLI) | payer OTHER | END | disposition home or self-care (01) | LOC: CT 04:13 | PROVIDERS: ATTEND Nurse Practitioner Family | DX: S06.6X0D Traumatic subarachnoid hemorrhage without loss of consciousness, subsequent encounter (principal); I67.82 Cerebral ischemia; X58.XXXD Exposure to other specified factors, subsequent encounter ==

== ENCOUNTER 2021-05-24 14:16 | Emergency (ER) | payer OTHER ==
[~2021-05-24] VITALS: Wt 70.3 kg
[2021-05-24 14:22] VITALS: BP 150/74
[2021-05-24 15:04] LABS: BASO % 0.6 % (0.0-1.0); EOS # 0.2 10*3/uL (0.0-0.4); HEMATOCRIT 38.2 % (42.0-52.0); LYMPH % 19.5 % (27.0-41.0); MEAN CELL VOLUME 95.5 fl (80.0-94.0); MEAN CORPUSCULAR HGB 31.8 pg (27.0-31.0); MEAN CORPUSCULAR HGB CONC 33.2 g/dl (33.0-37.0); MEAN PLATELET VOLUME 9.4 fl (9.6-12.3); MONO # 0.7 10*3/uL (0.1-1.0); MONO % 13.8 % (3.0-9.0); NEUT # 3.1 10*3/uL (2.3-7.9); NEUT % 62.7 % (47.0-73.0); PLATELET COUNT AUTOMATED 119 10*3/uL (130-400); RED CELL DISTRI WIDTH 13.8 % (0-14.5); WHITE BLOOD COUNT 4.9 10*3/uL (4.8-10.8)
[2021-05-24 15:20] LABS: ALKALINE PHOSPHATASE 65 U/L (45-117); BUN 21 mg/dl (7-24); CHLORIDE 110 mmol/L (98-107); CREATININE 0.97 mg/dL (0.70-1.30); LIPASE 181 U/L (73-393); POTASSIUM 3.3 mmol/L (3.5-5.1); SGOT/AST 11 IU/L (3-35); SGPT/ALT 15 U/L (12-78); SODIUM 141 mmol/L (136-145); TOTAL PROTEIN 6.8 gm/dL (6.4-8.2)
[2021-05-24 15:39] LABS: BILIRUBIN Negative (Negative); BLOOD Trace-Lysed (Negative); CLARITY Clear (Clear); COLOR Yellow (Yellow); GLUCOSE Negative (Negative); KETONE Negative (Negative); LEUKO ESTERASE Negative (Negative); NITRITE Negative (Negative); PH 6.5 (4.5-8.0); SPECIFIC GRAVITY 1.015 (1.001-1.030)
[2021-05-24 16:00] LABS: BACTERIA TRACE
[2021-05-24] MEDS ORDERED: KETOROLAC10 MG PO (18:26)
[2021-05-24] MEDS ORDERED: FLOMAX0.4 MG PO (18:26)
== END 2021-05-24 18:35 | disposition home or self-care (01) ==
LOC: ED 14:16
PROVIDERS: Physician Assistant
DX: N13.2 Hydronephrosis with renal and ureteral calculous obstruction (principal); Z79.899 Other long term (current) drug therapy; Z90.49 Acquired absence of other specified parts of digestive tract; Z90.89 Acquired absence of other organs; Z95.1 Presence of aortocoronary bypass graft; Z87.891 Personal history of nicotine dependence

== ENCOUNTER 2021-06-07 18:01 | Inpatient (IN) | payer OTHER ==
[~2021-06-07] VITALS: Ht 167.6 cm; Wt 71.2 kg
[2021-06-07] VITALS (9 sets, daily range): BP systolic 86–115; BP diastolic 40–66
[~2021-06-07 18:01] MED LIST changes: +FLOMAX0.4 MG PO; +KETOROLAC10 MG PO
[2021-06-07 18:49] LABS: BASO % 0.6 % (0.0-1.0); EOS # 0.2 10*3/uL (0.0-0.4); HEMATOCRIT 25.9 % (42.0-52.0); LYMPH # 1.3 10*3/uL (1.3-4.4); LYMPH % 25.2 % (27.0-41.0); MEAN CELL VOLUME 98.1 fl (80.0-94.0); MEAN CORPUSCULAR HGB 31.8 pg (27.0-31.0); MEAN CORPUSCULAR HGB CONC 32.4 g/dl (33.0-37.0); MEAN PLATELET VOLUME 8.8 fl (9.6-12.3); MONO # 0.5 10*3/uL (0.1-1.0); NEUT # 3.2 10*3/uL (2.3-7.9); NEUT % 60.4 % (47.0-73.0); PLATELET COUNT AUTOMATED 154 10*3/uL (130-400); RED BLOOD COUNT 2.64 10*6/uL (4.50-5.90); RED CELL DISTRI WIDTH 14.3 % (0-14.5); WHITE BLOOD COUNT 5.3 10*3/uL (4.8-10.8)
[2021-06-07 18:58] LABS: INTERNATIONAL NORM RATIO 1.2 (2.0-3.5)
[2021-06-07 19:04] LABS: ALKALINE PHOSPHATASE 48 U/L (45-117); BUN 38 mg/dl (7-24); CHLORIDE 108 mmol/L (98-107); CREATININE 1.04 mg/dL (0.70-1.30); POTASSIUM 3.3 mmol/L (3.5-5.1); SGOT/AST 13 IU/L (3-35); SGPT/ALT 20 U/L (12-78); SODIUM 141 mmol/L (136-145); TOTAL PROTEIN 5.8 gm/dL (6.4-8.2)
[2021-06-07 20:34] LABS: BILIRUBIN Negative (Negative); BLOOD Negative (Negative); CLARITY Clear (Clear); COLOR Yellow (Yellow); GLUCOSE Negative (Negative); KETONE Negative (Negative); LEUKO ESTERASE Negative (Negative); NITRITE Negative (Negative)
[2021-06-07 20:43] LABS: BACTERIA 1+; EPITHELIAL CELLS 0-2; HYALINE CAST 0-2
[2021-06-07 20:44] LABS: MUCOUS 1+
[2021-06-07] MEDS ORDERED: XARE20MG PO (22:22)
[2021-06-08] VITALS (9 sets, daily range): BP systolic 96–146; BP diastolic 44–94
[2021-06-08 00:48] LABS: IRON 90 ug/dL (65-175); TOTAL IRON BINDING CAPACITY 314 ug/dl (250-450)
[2021-06-08 05:58] LABS: ALKALINE PHOSPHATASE 40 U/L (45-117); BUN 32 mg/dl (7-24); CHLORIDE 111 mmol/L (98-107); CREATININE 0.77 mg/dL (0.70-1.30); FREE T4 0.82 ng/dl (0.76-1.46); SGOT/AST 14 IU/L (3-35); SGPT/ALT 21 U/L (12-78); SODIUM 141 mmol/L (136-145); TOTAL PROTEIN 5.4 gm/dL (6.4-8.2)
[2021-06-08 06:02] LABS: BASO % 0.8 % (0.0-1.0); EOS # 0.2 10*3/uL (0.0-0.4); EOS % 4.1 % (1.0-4.0); HEMATOCRIT 22.9 % (42.0-52.0); LYMPH # 1.5 10*3/uL (1.3-4.4); LYMPH % 31.1 % (27.0-41.0); MEAN CELL VOLUME 98.7 fl (80.0-94.0); MEAN CORPUSCULAR HGB 31.9 pg (27.0-31.0); MEAN CORPUSCULAR HGB CONC 32.3 g/dl (33.0-37.0); MEAN PLATELET VOLUME 9.5 fl (9.6-12.3); MONO # 0.6 10*3/uL (0.1-1.0); MONO % 12.6 % (3.0-9.0); NEUT # 2.5 10*3/uL (2.3-7.9); NEUT % 50.8 % (47.0-73.0); PLATELET COUNT AUTOMATED 151 10*3/uL (130-400); RED BLOOD COUNT 2.32 10*6/uL (4.50-5.90); RED CELL DISTRI WIDTH 14.2 % (0-14.5); WHITE BLOOD COUNT 4.8 10*3/uL (4.8-10.8)
[2021-06-08 15:34] LABS: BASO % 0.4 % (0.0-1.0); EOS # 0.2 10*3/uL (0.0-0.4); EOS % 4.6 % (1.0-4.0); LYMPH # 1.5 10*3/uL (1.3-4.4); LYMPH % 32.2 % (27.0-41.0); MEAN CELL VOLUME 97.7 fl (80.0-94.0); MEAN CORPUSCULAR HGB 32.6 pg (27.0-31.0); MEAN CORPUSCULAR HGB CONC 33.3 g/dl (33.0-37.0); MEAN PLATELET VOLUME 9.1 fl (9.6-12.3); MONO # 0.5 10*3/uL (0.1-1.0); MONO % 10.6 % (3.0-9.0); NEUT # 2.5 10*3/uL (2.3-7.9); NEUT % 51.8 % (47.0-73.0); PLATELET COUNT AUTOMATED 141 10*3/uL (130-400); RED BLOOD COUNT 2.15 10*6/uL (4.50-5.90); RED CELL DISTRI WIDTH 14.3 % (0-14.5); WHITE BLOOD COUNT 4.8 10*3/uL (4.8-10.8)
[2021-06-09] VITALS (17 sets, daily range): BP systolic 104–158; BP diastolic 33–78
[2021-06-09 05:49] LABS: BUN 26 mg/dl (7-24); CHLORIDE 113 mmol/L (98-107); CREATININE 0.75 mg/dL (0.70-1.30); POTASSIUM 3.6 mmol/L (3.5-5.1); SODIUM 144 mmol/L (136-145)
[2021-06-09 06:17] LABS: MEAN CORPUSCULAR HGB 32.4 pg (27.0-31.0); MEAN CORPUSCULAR HGB CONC 32.4 g/dl (33.0-37.0); MEAN PLATELET VOLUME 9.7 fl (9.6-12.3); PLATELET COUNT AUTOMATED 126 10*3/uL (130-400); RED BLOOD COUNT 1.88 10*6/uL (4.50-5.90); RED CELL DISTRI WIDTH 14.7 % (0-14.5); WHITE BLOOD COUNT 3.7 10*3/uL (4.8-10.8)
[2021-06-09 06:20] LABS: MANUAL DIFF REFLEX YES
[2021-06-09 06:23] LABS: HEMATOCRIT 18.8 % (42.0-52.0)
[2021-06-09 06:54] LABS: BASOPHILS 2 % (0-1); OVALOCYTES FEW; PLATELET SUFFICIENCY LOW (NORMAL); POLYCHROMASIA SLIGHT; TOTAL CELLS COUNTED 100 #CELLS
[2021-06-09 12:06] LABS: BASO % 0.6 % (0.0-1.0); EOS # 0.2 10*3/uL (0.0-0.4); EOS % 3.9 % (1.0-4.0); HEMATOCRIT 24.2 % (42.0-52.0); LYMPH # 1.2 10*3/uL (1.3-4.4); LYMPH % 22.9 % (27.0-41.0); MEAN CELL VOLUME 97.2 fl (80.0-94.0); MEAN CORPUSCULAR HGB 31.3 pg (27.0-31.0); MEAN CORPUSCULAR HGB CONC 32.2 g/dl (33.0-37.0); MEAN PLATELET VOLUME 9.1 fl (9.6-12.3); MONO # 0.4 10*3/uL (0.1-1.0); MONO % 7.3 % (3.0-9.0); NEUT # 3.4 10*3/uL (2.3-7.9); NEUT % 64.7 % (47.0-73.0); PLATELET COUNT AUTOMATED 141 10*3/uL (130-400); RED BLOOD COUNT 2.49 10*6/uL (4.50-5.90); RED CELL DISTRI WIDTH 15.7 % (0-14.5); WHITE BLOOD COUNT 5.2 10*3/uL (4.8-10.8)
[2021-06-10] VITALS (10 sets, daily range): BP systolic 101–139; BP diastolic 50–76
[2021-06-10 06:07] LABS: BUN 19 mg/dl (7-24); CHLORIDE 110 mmol/L (98-107); CREATININE 0.71 mg/dL (0.70-1.30); POTASSIUM 3.6 mmol/L (3.5-5.1); SODIUM 142 mmol/L (136-145)
[2021-06-10 06:41] LABS: MEAN CELL VOLUME 97.6 fl (80.0-94.0); MEAN CORPUSCULAR HGB CONC 32.8 g/dl (33.0-37.0); MEAN PLATELET VOLUME 9.9 fl (9.6-12.3); PLATELET COUNT AUTOMATED 133 10*3/uL (130-400); RED BLOOD COUNT 2.06 10*6/uL (4.50-5.90); WHITE BLOOD COUNT 3.8 10*3/uL (4.8-10.8)
[2021-06-10 06:47] LABS: HEMATOCRIT 20.1 % (42.0-52.0); MANUAL DIFF REFLEX YES
[2021-06-10 07:33] LABS: PLATELET SUFFICIENCY NORMAL (NORMAL); TOTAL CELLS COUNTED 100 #CELLS
[2021-06-10 13:22] LABS: BASO % 0.7 % (0.0-1.0); EOS # 0.2 10*3/uL (0.0-0.4); EOS % 4.2 % (1.0-4.0); HEMATOCRIT 22.9 % (42.0-52.0); LYMPH # 1.2 10*3/uL (1.3-4.4); LYMPH % 27.1 % (27.0-41.0); MEAN CELL VOLUME 94.6 fl (80.0-94.0); MEAN CORPUSCULAR HGB 31.4 pg (27.0-31.0); MEAN CORPUSCULAR HGB CONC 33.2 g/dl (33.0-37.0); MEAN PLATELET VOLUME 9.6 fl (9.6-12.3); MONO # 0.6 10*3/uL (0.1-1.0); MONO % 12.5 % (3.0-9.0); NEUT # 2.5 10*3/uL (2.3-7.9); NEUT % 55.1 % (47.0-73.0); PLATELET COUNT AUTOMATED 131 10*3/uL (130-400); RED BLOOD COUNT 2.42 10*6/uL (4.50-5.90); RED CELL DISTRI WIDTH 17.4 % (0-14.5); WHITE BLOOD COUNT 4.6 10*3/uL (4.8-10.8)
[2021-06-11] VITALS: BP 104/58
[2021-06-11 05:37] LABS: BUN 21 mg/dl (7-24); CHLORIDE 110 mmol/L (98-107); CREATININE 0.75 mg/dL (0.70-1.30); POTASSIUM 3.8 mmol/L (3.5-5.1); SODIUM 143 mmol/L (136-145)
[2021-06-11 06:17] LABS: BASO % 0.7 % (0.0-1.0); EOS # 0.2 10*3/uL (0.0-0.4); EOS % 3.8 % (1.0-4.0); HEMATOCRIT 21.1 % (42.0-52.0); LYMPH # 0.8 10*3/uL (1.3-4.4); LYMPH % 18.1 % (27.0-41.0); MEAN CELL VOLUME 94.6 fl (80.0-94.0); MEAN CORPUSCULAR HGB 31.4 pg (27.0-31.0); MEAN CORPUSCULAR HGB CONC 33.2 g/dl (33.0-37.0); MONO # 0.5 10*3/uL (0.1-1.0); MONO % 12.2 % (3.0-9.0); NEUT # 2.8 10*3/uL (2.3-7.9); NEUT % 64.5 % (47.0-73.0); PLATELET COUNT AUTOMATED 139 10*3/uL (130-400); RED BLOOD COUNT 2.23 10*6/uL (4.50-5.90); RED CELL DISTRI WIDTH 18.1 % (0-14.5); WHITE BLOOD COUNT 4.3 10*3/uL (4.8-10.8)
[2021-06-11 08:00] VITALS: BP 118/42
[2021-06-11 12:00] VITALS: BP 101/54
[2021-06-11 16:00] VITALS: BP 108/62
[2021-06-11 20:00] VITALS: BP 96/50
[2021-06-12] VITALS (8 sets, daily range): BP systolic 90–132; BP diastolic 52–91
[2021-06-12 05:47] LABS: BUN 21 mg/dl (7-24); CHLORIDE 111 mmol/L (98-107); CREATININE 0.74 mg/dL (0.70-1.30); POTASSIUM 3.6 mmol/L (3.5-5.1); SODIUM 140 mmol/L (136-145)
[2021-06-12 06:38] LABS: MEAN CELL VOLUME 94.6 fl (80.0-94.0); MEAN CORPUSCULAR HGB CONC 32.8 g/dl (33.0-37.0); MEAN PLATELET VOLUME 9.4 fl (9.6-12.3); PLATELET COUNT AUTOMATED 138 10*3/uL (130-400); RED BLOOD COUNT 2.03 10*6/uL (4.50-5.90); RED CELL DISTRI WIDTH 17.3 % (0-14.5); WHITE BLOOD COUNT 3.4 10*3/uL (4.8-10.8)
[2021-06-12 06:41] LABS: MANUAL DIFF REFLEX YES
[2021-06-12 06:43] LABS: HEMATOCRIT 19.2 % (42.0-52.0)
[2021-06-12 07:08] LABS: POLYCHROMASIA SLIGHT; TARGET CELLS FEW; TOTAL CELLS COUNTED 100 #CELLS
[2021-06-12 07:09] LABS: OVALOCYTES FEW; PLATELET SUFFICIENCY NORMAL (NORMAL)
[2021-06-12 18:07] LABS: BASO % 0.6 % (0.0-1.0); EOS # 0.3 10*3/uL (0.0-0.4); EOS % 4.7 % (1.0-4.0); HEMATOCRIT 24.6 % (42.0-52.0); LYMPH # 1.7 10*3/uL (1.3-4.4); LYMPH % 27.5 % (27.0-41.0); MEAN CELL VOLUME 92.5 fl (80.0-94.0); MEAN CORPUSCULAR HGB 30.5 pg (27.0-31.0); MEAN CORPUSCULAR HGB CONC 32.9 g/dl (33.0-37.0); MEAN PLATELET VOLUME 9.2 fl (9.6-12.3); MONO # 0.8 10*3/uL (0.1-1.0); NEUT # 3.3 10*3/uL (2.3-7.9); NEUT % 53.9 % (47.0-73.0); PLATELET COUNT AUTOMATED 159 10*3/uL (130-400); RED BLOOD COUNT 2.66 10*6/uL (4.50-5.90); RED CELL DISTRI WIDTH 16.4 % (0-14.5); WHITE BLOOD COUNT 6.2 10*3/uL (4.8-10.8)
[2021-06-13] VITALS (9 sets, daily range): BP systolic 95–131; BP diastolic 52–67
[2021-06-13 06:14] LABS: BASO % 0.5 % (0.0-1.0); EOS # 0.2 10*3/uL (0.0-0.4); EOS % 5.4 % (1.0-4.0); HEMATOCRIT 23.6 % (42.0-52.0); LYMPH % 26.7 % (27.0-41.0); MEAN CELL VOLUME 91.8 fl (80.0-94.0); MEAN CORPUSCULAR HGB CONC 32.6 g/dl (33.0-37.0); MEAN PLATELET VOLUME 9.5 fl (9.6-12.3); MONO # 0.5 10*3/uL (0.1-1.0); MONO % 11.9 % (3.0-9.0); NEUT # 2.1 10*3/uL (2.3-7.9); NEUT % 55.2 % (47.0-73.0); PLATELET COUNT AUTOMATED 148 10*3/uL (130-400); RED BLOOD COUNT 2.57 10*6/uL (4.50-5.90); RED CELL DISTRI WIDTH 16.2 % (0-14.5); WHITE BLOOD COUNT 3.9 10*3/uL (4.8-10.8)
[2021-06-13 06:23] LABS: BUN 12 mg/dl (7-24); CHLORIDE 107 mmol/L (98-107); CREATININE 0.69 mg/dL (0.70-1.30); POTASSIUM 3.5 mmol/L (3.5-5.1); SODIUM 142 mmol/L (136-145)
[2021-06-14] VITALS: BP 115/56
[2021-06-14 05:54] LABS: BASO % 0.5 % (0.0-1.0); EOS # 0.2 10*3/uL (0.0-0.4); EOS % 3.9 % (1.0-4.0); HEMATOCRIT 21.2 % (42.0-52.0); LYMPH # 1.2 10*3/uL (1.3-4.4); LYMPH % 27.1 % (27.0-41.0); MEAN CORPUSCULAR HGB 30.7 pg (27.0-31.0); MEAN PLATELET VOLUME 9.4 fl (9.6-12.3); MONO # 0.5 10*3/uL (0.1-1.0); MONO % 12.5 % (3.0-9.0); NEUT # 2.4 10*3/uL (2.3-7.9); NEUT % 55.5 % (47.0-73.0); PLATELET COUNT AUTOMATED 133 10*3/uL (130-400); RED BLOOD COUNT 2.28 10*6/uL (4.50-5.90); RED CELL DISTRI WIDTH 15.5 % (0-14.5); WHITE BLOOD COUNT 4.3 10*3/uL (4.8-10.8)
[2021-06-14 06:10] LABS: BUN 13 mg/dl (7-24); CHLORIDE 108 mmol/L (98-107); POTASSIUM 3.6 mmol/L (3.5-5.1); SODIUM 140 mmol/L (136-145)
[2021-06-14 06:11] LABS: CREATININE 0.76 mg/dL (0.70-1.30)
[2021-06-14 08:00] VITALS: BP 122/65
[2021-06-14 12:00] VITALS: BP 128/69
[2021-06-14 15:58] VITALS: BP 126/72
[2021-06-14 20:00] VITALS: BP 103/48
[2021-06-15] VITALS (12 sets, daily range): BP systolic 104–146; BP diastolic 44–76
[2021-06-15 06:36] LABS: HEMATOCRIT 21.3 % (42.0-52.0); MANUAL DIFF REFLEX YES; MEAN CELL VOLUME 93.4 fl (80.0-94.0); MEAN CORPUSCULAR HGB 29.4 pg (27.0-31.0); MEAN CORPUSCULAR HGB CONC 31.5 g/dl (33.0-37.0); MEAN PLATELET VOLUME 9.6 fl (9.6-12.3); PLATELET COUNT AUTOMATED 140 10*3/uL (130-400); RED BLOOD COUNT 2.28 10*6/uL (4.50-5.90); RED CELL DISTRI WIDTH 14.8 % (0-14.5); WHITE BLOOD COUNT 3.1 10*3/uL (4.8-10.8)
[2021-06-15 07:38] LABS: OVALOCYTES FEW; PLATELET SUFFICIENCY NORMAL (NORMAL); POLYCHROMASIA SLIGHT; SCHISTOCYTES FEW; TARGET CELLS FEW; TOTAL CELLS COUNTED 100 #CELLS
[2021-06-15 13:13] LABS: BASO % 0.4 % (0.0-1.0); EOS # 0.2 10*3/uL (0.0-0.4); HEMATOCRIT 27.4 % (42.0-52.0); LYMPH # 1.2 10*3/uL (1.3-4.4); LYMPH % 26.8 % (27.0-41.0); MEAN CELL VOLUME 91.6 fl (80.0-94.0); MEAN CORPUSCULAR HGB 29.4 pg (27.0-31.0); MEAN CORPUSCULAR HGB CONC 32.1 g/dl (33.0-37.0); MEAN PLATELET VOLUME 9.3 fl (9.6-12.3); MONO # 0.6 10*3/uL (0.1-1.0); MONO % 13.1 % (3.0-9.0); NEUT # 2.5 10*3/uL (2.3-7.9); NEUT % 55.5 % (47.0-73.0); PLATELET COUNT AUTOMATED 166 10*3/uL (130-400); RED BLOOD COUNT 2.99 10*6/uL (4.50-5.90); RED CELL DISTRI WIDTH 16.1 % (0-14.5); WHITE BLOOD COUNT 4.5 10*3/uL (4.8-10.8)
[2021-06-15 17:07] LABS: BASO % 0.5 % (0.0-1.0); EOS # 0.1 10*3/uL (0.0-0.4); EOS % 3.5 % (1.0-4.0); HEMATOCRIT 26.1 % (42.0-52.0); LYMPH % 24.2 % (27.0-41.0); MEAN CELL VOLUME 90.3 fl (80.0-94.0); MEAN CORPUSCULAR HGB 29.1 pg (27.0-31.0); MEAN CORPUSCULAR HGB CONC 32.2 g/dl (33.0-37.0); MEAN PLATELET VOLUME 8.8 fl (9.6-12.3); MONO # 0.6 10*3/uL (0.1-1.0); MONO % 16.1 % (3.0-9.0); NEUT # 2.2 10*3/uL (2.3-7.9); NEUT % 55.4 % (47.0-73.0); PLATELET COUNT AUTOMATED 140 10*3/uL (130-400); RED BLOOD COUNT 2.89 10*6/uL (4.50-5.90)
[2021-06-16] VITALS: BP 125/56
[2021-06-16 05:51] LABS: BUN 10 mg/dl (7-24); CHLORIDE 107 mmol/L (98-107); POTASSIUM 3.9 mmol/L (3.5-5.1); SODIUM 140 mmol/L (136-145)
[2021-06-16 06:03] LABS: BASO % 0.8 % (0.0-1.0); EOS # 0.2 10*3/uL (0.0-0.4); EOS % 5.3 % (1.0-4.0); HEMATOCRIT 25.3 % (42.0-52.0); LYMPH % 26.1 % (27.0-41.0); MEAN CELL VOLUME 90.7 fl (80.0-94.0); MEAN PLATELET VOLUME 9.3 fl (9.6-12.3); MONO # 0.6 10*3/uL (0.1-1.0); MONO % 14.6 % (3.0-9.0); NEUT # 2.1 10*3/uL (2.3-7.9); NEUT % 52.9 % (47.0-73.0); PLATELET COUNT AUTOMATED 152 10*3/uL (130-400); RED BLOOD COUNT 2.79 10*6/uL (4.50-5.90); RED CELL DISTRI WIDTH 15.8 % (0-14.5)
[2021-06-16 08:00] VITALS: BP 137/69
[2021-06-16] MEDS ORDERED: Carafate1 GM PO (09:48)
[2021-06-16] MEDS ORDERED: PROTONIX40 MG PO (09:50)
[2021-06-16] MEDS ORDERED: ZESTRIL10 MG PO (09:53)
== END 2021-06-16 10:45 | disposition home or self-care (01) | DRG 378 ==
LOC: ED 18:01 → EDHOLD 21:54 → 4E 21:54
PROVIDERS: Family Medicine; Hospitalist; Internal Medicine; Physician Assistant; Student in an Organized Health Care Education/Training Program; ADMIT Student in an Organized Health Care Education/Training Program; ATTEND Student in an Organized Health Care Education/Training Program
PROC: 0DB68ZX Excision of Stomach, Via Natural or Artificial Opening Endoscopic, Diagnostic (ICD-10-PCS; 2021-06-08)
PROC: 30233N1 Transfusion of Nonautologous Red Blood Cells into Peripheral Vein, Percutaneous Approach (ICD-10-PCS; 2021-06-09)
PROC: 0DBM8ZZ Excision of Descending Colon, Via Natural or Artificial Opening Endoscopic (ICD-10-PCS; principal; 2021-06-13)
PROC: 0DBL8ZZ Excision of Transverse Colon, Via Natural or Artificial Opening Endoscopic (ICD-10-PCS; 2021-06-13)
DX: K25.0 Acute gastric ulcer with hemorrhage (principal); I50.20 Unspecified systolic (congestive) heart failure; F33.9 Major depressive disorder, recurrent, unspecified; E44.0 Moderate protein-calorie malnutrition; D53.9 Nutritional anemia, unspecified; I95.89 Other hypotension; E86.1 Hypovolemia; E87.5 Hyperkalemia; E87.8 Other disorders of electrolyte and fluid balance, not elsewhere classified; R73.9 Hyperglycemia, unspecified; K57.31 Diverticulosis of large intestine without perforation or abscess with bleeding; I48.0 Paroxysmal atrial fibrillation; I25.10 Atherosclerotic heart disease of native coronary artery without angina pectoris; E78.2 Mixed hyperlipidemia; K21.9 Gastro-esophageal reflux disease without esophagitis; G43.909 Migraine, unspecified, not intractable, without status migrainosus; K63.5 Polyp of colon; Z68.25 Body mass index [BMI] 25.0-25.9, adult; Z95.1 Presence of aortocoronary bypass graft; Z90.49 Acquired absence of other specified parts of digestive tract; Z87.891 Personal history of nicotine dependence; Z82.49 Family history of ischemic heart disease and other diseases of the circulatory system; Z79.899 Other long term (current) drug therapy; D50.0 Iron deficiency anemia secondary to blood loss (chronic)

== ENCOUNTER 2021-09-24 17:05 | Emergency (ER) | payer OTHER ==
[~2021-09-24] VITALS: Ht 167.6 cm; Wt 68.0 kg
[~2021-09-24 17:05] MED LIST changes: +Carafate1 GM PO; +PROTONIX40 MG PO; +XARE20MG PO
[2021-09-24 18:39] LABS: BASO % 0.8 % (0.0-1.0); EOS # 0.1 10*3/uL (0.0-0.4); EOS % 2.5 % (1.0-4.0); HEMATOCRIT 38.2 % (42.0-52.0); MEAN CELL VOLUME 83.4 fl (80.0-94.0); MEAN CORPUSCULAR HGB 25.8 pg (27.0-31.0); MEAN CORPUSCULAR HGB CONC 30.9 g/dl (33.0-37.0); MEAN PLATELET VOLUME 9.4 fl (9.6-12.3); MONO # 0.8 10*3/uL (0.1-1.0); MONO % 14.6 % (3.0-9.0); NEUT # 3.3 10*3/uL (2.3-7.9); NEUT % 62.7 % (47.0-73.0); PLATELET COUNT AUTOMATED 192 10*3/uL (130-400); RED BLOOD COUNT 4.58 10*6/uL (4.50-5.90); RED CELL DISTRI WIDTH 19.9 % (0-14.5); WHITE BLOOD COUNT 5.2 10*3/uL (4.8-10.8)
[2021-09-24] MEDS ORDERED: ELIQUIS (18:43)
[2021-09-24 18:53] LABS: ALKALINE PHOSPHATASE 67 U/L (45-117); BUN 24 mg/dl (7-24); CHLORIDE 110 mmol/L (98-107); CREATININE 1.04 mg/dL (0.70-1.30); SGOT/AST 12 IU/L (3-35); SGPT/ALT 10 U/L (12-78); SODIUM 142 mmol/L (136-145); TOTAL PROTEIN 7.2 gm/dL (6.4-8.2)
[2021-09-24] MEDS ORDERED: ELIQUIS5 M1 PO (19:22)
[2021-09-24] MEDS ORDERED: DEPAKOTE ER500 MG PO (19:24)
[2021-09-24] MEDS ORDERED: ZOLOFT100 MG PO (19:25)
[2021-09-24] MEDS ORDERED: METOPROLOL SUCC25 M2 PO (19:27)
[2021-09-24] MEDS ORDERED: IRON325 M1 PO (19:28)
[2021-09-24] MEDS ORDERED: VITAMIN C250 M2 PO (19:31)
[2021-09-24] MEDS ORDERED: NARCAN4 MG INH (19:31)
[2021-09-24] MEDS ORDERED: FINASTERIDE5 M1 PO (19:33)
[2021-09-24 20:39] LABS: BILIRUBIN Negative (Negative); BLOOD 2+ (Negative); CLARITY Clear (Clear); COLOR Yellow (Yellow); GLUCOSE Negative (Negative); KETONE Trace (Negative); LEUKO ESTERASE 1+ (Negative); NITRITE Negative (Negative); PH 5.5 (4.5-8.0)
[2021-09-24 20:47] LABS: RBC TNTC rbc/hpf (0-2)
[2021-09-24 20:48] LABS: MUCOUS TRACE; WBC 21-30 wbc/hpf (0-5)
[2021-09-25 03:30] VITALS: BP 149/64
== END 2021-09-25 03:52 | disposition short-term general hospital (02) ==
LOC: ED 17:05
PROVIDERS: Emergency Medicine
DX: N13.2 Hydronephrosis with renal and ureteral calculous obstruction (principal)

== ENCOUNTER → 2021-10-18 | Outpatient (CLI) | payer OTHER ==
[~2021-10-18] MED LIST changes: +DEPAKOTE ER500 MG PO; +ELIQUIS; +ELIQUIS5 M1 PO; +FINASTERIDE5 M1 PO; +IRON325 M1 PO; +NARCAN4 MG INH; +VITAMIN C250 M2 PO
== END | disposition home or self-care (01) ==
LOC: RAD 01:09
PROVIDERS: ATTEND Urology
DX: N20.0 Calculus of kidney (principal); N28.89 Other specified disorders of kidney and ureter

== ENCOUNTER → 2021-10-31 | Outpatient (CLI) | payer OTHER | LOC: LAB 00:32 | PROVIDERS: ATTEND Urology | DX: D40.0 Neoplasm of uncertain behavior of prostate (principal); R53.83 Other fatigue ==

== ENCOUNTER → 2021-11-09 | Outpatient (CLI) | payer OTHER | END | disposition home or self-care (01) | LOC: CT 00:42 | PROVIDERS: ATTEND Urology | DX: I71.4 Abdominal aortic aneurysm, without rupture (principal); N20.0 Calculus of kidney; N99.114 Postprocedural urethral stricture, male, unspecified; I51.7 Cardiomegaly ==

== ENCOUNTER 2022-03-16 17:30 | Emergency (ER) | payer OTHER ==
[~2022-03-16] VITALS: Ht 165.1 cm; Wt 69.4 kg
[2022-03-16 19:38] VITALS: BP 172/81
[2022-03-16] MEDS ORDERED: XARE20MG PO (19:40)
[2022-03-16] MEDS ORDERED: TRAMADOL HCL50 MG PO (22:22)
== END 2022-03-16 22:40 | disposition home or self-care (01) ==
LOC: ED 17:30
DX: S22.32XA Fracture of one rib, left side, initial encounter for closed fracture (principal); Z90.49 Acquired absence of other specified parts of digestive tract; Z90.89 Acquired absence of other organs; Z98.890 Other specified postprocedural states; Z87.891 Personal history of nicotine dependence; W18.39XA Other fall on same level, initial encounter; Y93.89 Activity, other specified; Y92.89 Other specified places as the place of occurrence of the external cause; Y99.8 Other external cause status

== ENCOUNTER → 2024-04-14 | Outpatient (CLI) | payer OTHER ==
[~2024-04-14] MED LIST changes: +TRAMADOL HCL50 MG PO
== END | disposition home or self-care (01) ==
LOC: MRI 02:07
PROVIDERS: ATTEND Internal Medicine
DX: S46.812A Strain of other muscles, fascia and tendons at shoulder and upper arm level, left arm, initial encounter (principal); M62.58 Muscle wasting and atrophy, not elsewhere classified, other site; M75.122 Complete rotator cuff tear or rupture of left shoulder, not specified as traumatic; M19.012 Primary osteoarthritis, left shoulder; S43.082A Other subluxation of left shoulder joint, initial encounter; X58.XXXA Exposure to other specified factors, initial encounter; Y93.89 Activity, other specified; Y92.89 Other specified places as the place of occurrence of the external cause; Y99.8 Other external cause status